=== PATIENT | male | born 1960 | race Caucasian/White ===

== ENCOUNTER 2018-07-07 14:14 | Emergency (ER) | payer OTHER, BC ==
[2018-07-07 14:20] VITALS: BP 156/70; PULSE 69; TEMP 97.8; BMI 33.2
--- NOTE | 2018-07-07 14:21 | PDOC ---
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 I have performed a brief in-person evaluation of this patient. Pertinent Physical Findings: Pt has pain upon palpation to the left elbow. Pt has difficulty flexing and extending left elbow. Radial pulse present, cap refill less than 2 seconds, sensation intact. I have ordered: left elbow xray The patient will proceed to: [facility] Discharge Disposition - Diagnosis Elbow pain, left - Referrals - Patient Instructions - Post Discharge Activity
--- NOTE | 2018-07-07 15:15 | PDOC ---
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 Has had bilateral knee surgeries on multiple occasions, and some shoulder, neck and back surgeries. while working on a project at home stumbled and fell onto his bilateral forearms 2 days ago. right arm is sore but he, however left arm feels that he has worsened injury to his left elbow. last year had a significant fall with swelling and pain but did not seek evaluation and that injury has never completely resolved. With this recent fall 3 exacerbated that pain and has worsened his immobility to his left elbow. has some intermittent numbness to his fingers however not currently. Occurred: reports: yesterday Severity: reports: mild, moderate Pain Location: reports: upper extremity (left elbow) Modifying Factors: improves with: cold therapy Associated Symptoms (Fall): denies symptoms Past History - Travel Traveled outside of the country in the last 30 days: No Close contact w/someone who was outside of country & ill: No - Past Medical History Allergies/Adverse Reactions: Allergies Allergy/AdvReac Type Severity Reaction Status Date / Time No Known Allergies Allergy Verified 07/07/18 14:16 Home Medications: Ambulatory Orders NK [No Known Home Medication] 07/07/18 CVA: No COPD: No CHF: No - Immunization History Immunization Up to Date: Yes - Suicide/Smoking/Psychosocial Hx Smoking History: Never smoked Information on smoking cessation initiated: No Hx Alcohol Use: No Drug/Substance Use Hx: No Substance Use Type: None Review of Systems - Review of Systems Able to Perform ROS?: Yes Is the patient limited Polish proficient: Yes Constitutional: Yes: Symptoms Reported, Malaise. No: Loss of Appetite HEENTM: No: Symptoms Reported Respiratory: No: Symptoms reported Musculoskeletal: Yes: Symptoms Reported, See HPI, Joint Pain, Joint Swelling, Muscle Pain Integumentary: Yes: See HPI. No: Symptoms Reported, Bruising Neurological: Yes: Symptoms reported All Other Systems: Reviewed and Negative *Physical Exam - Vital Signs Last Vital Signs Temp Pulse Resp BP Pulse Ox 97.8 F 69 16 156/70 97 07/07/18 14:17 07/07/18 14:17 07/07/18 14:17 07/07/18 14:17 07/07/18 14:17 - Physical Exam General Appearance: Yes: Nourished, Appropriately Dressed, Apparent Distress, Mild Distress HEENT: positive: GISELA, Normal ENT Inspection, TMs Normal, Pharynx Normal Neck: positive: Supple. negative: Tender Respiratory/Chest: positive: Lungs Clear Musculoskeletal: positive: Normal Inspection Extremity: positive: Normal Capillary Refill, Tender. negative: Normal Inspection (swelling and immobility to extension limited to 30 angle and flexion. Unable to straighten left arm. Has strong grasp, flexion and extension to digits, but is unable to supinate and pronate at wrist due to restriction at left elbow. 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 Isabel as patient has significant arthritic changes and what appears to be an old until her injury. He did not identify any acute fractures or dislocations. Patient was placed in sling, encouraged follow-up with orthopedist for further evaluation and potential treatment for chronic left elbow immobility and pain. Continue his pain medications per his pain management *DC/Admit/Observation/Transfer Diagnosis at time of Disposition: Elbow pain, left - Discharge Dispostion Disposition: HOME Condition at time of disposition: Stable Decision to Admit order: No - Referrals Referrals: Kristopher Machado MD [Staff Physician] - - Patient Instructions Printed Discharge Instructions: DI for Elbow Pain Additional Instructions: Rest, ice to area on and off for 15 minutes 4-6 times a day Avoid heavy lifting or exercise until pain and swelling is resolved or until further directed Keep area highly elevated to reduce swelling Use splints/Dannie wrap as directed Followup with orthopedist in one to 2 days if not improving, if significantly improved may wait one week for followup with orthopedist May use ibuprofen 2-200 mg tablets every 6 hours as needed for pain - Post Discharge Activity Forms/Work/School Notes: Back to Work
== END 2018-07-07 15:32 | disposition home or self-care (01) ==
LOC: EDBD 14:14 → JERFT 14:14
DX: S59.802A Other specified injuries of left elbow, initial encounter (principal); W18.39XA Other fall on same level, initial encounter; Y93.E9 Activity, other interior property and clothing maintenance; Y92.018 Other place in single-family (private) house as the place of occurrence of the external cause; Y99.8 Other external cause status
CPT/HCPCS: 73070-TC-LT-FY; 99281-25

== ENCOUNTER 2020-08-28 13:29 | Emergency (ER) | payer OTHER, BC ==
[2020-08-28 14:01] VITALS: BP 148/87; PULSE 72; BMI 34.0
[2020-08-28 14:02] VITALS: TEMP 98
== END 2020-08-28 14:47 | disposition home or self-care (01) ==
LOC: JER 13:29
DX: J06.9 Acute upper respiratory infection, unspecified (principal)
CPT/HCPCS: 71045-TC-FY; 99284-25; C9803; U0003